=== PATIENT | female | born 1970 | race Two or more races ===

== ENCOUNTER 2023-08-29 08:58 | Inpatient (IN) | payer SELFPAY ==
[2023-08-29] VITALS (24 sets, daily range): BP systolic 99–134; BP diastolic 62–98; PULSE 54–81; RESP 16–19; TEMP 36.4–37.2; O2SAT 91–100; BMI 31.2; BMI 26.6
--- NOTE | 2023-08-29 09:03 | HMH.EDGENADL ---
Discharge Plan Disposition Patient Disposition: Admitted Discharge ED Provider: Javier Lua Adult HPI General Chief complaint: Abdominal Pain Stated complaint: Abd Pain Time Seen by Provider: 08/29/23 09:03 History of Present Illness HPI narrative: Patient presents with acute onset epigastric pain that started yesterday. It is severe and nonradiating. She states she has had similar symptoms before and was told that it was PUD. She has history of cholecystectomy and bilateral tubal ligation. She has had nausea vomiting and has not been able to pass flatus. Denies daily medication use however does not see a PCP. No fevers or chills. No chest pain. Related Data Home Medications Medication Instructions Recorded Confirmed bismuth subsalicylate 262 mg/15 mL 524 mg PO QID 08/29/23 08/29/23 oral suspension (Pepto-Bismol) Allergies Allergy/AdvReac Type Severity Reaction Status Date / Time No Known Allergies Allergy Verified 08/29/23 09:33 [facility] Disclaimer: The information contained in this section may have been updated after the patient was seen, as this information can be updated by other users. Surgical History (Updated 08/29/23 @ 09:34 by Savanah Brown RN) Hx of cholecystectomy Hx of tubal ligation Social History (Updated 08/29/23 @ 14:37 by Evelina Reed RN) Smoking Status: Never smoker alcohol intake: never current occupational status: unemployed Travel in the last 8 weeks: None ROS Obtained: Yes Systems reviewed as appropriate & no additional complaints except as documented As per HPI Physical Exam General General appearance: alert and in distress Head Head exam: atraumatic and normocephalic Eye Eye exam: Present normal appearance Neck Neck exam: Present normal inspection Chest Chest inspection: Present normal inspection and symmetric chest wall rise Respiratory Respiratory exam: Present normal lung sounds bilaterally; Absent respiratory distress Cardiovascular Cardiovascular exam: Present regular rate and normal rhythm Abdominal Exam Abdominal exam: Present soft and tenderness Abdominal tenderness: Present epigastrium Neurological Exam Neurological exam: Present alert and oriented X3 Psychiatric Psychiatric exam: Present normal affect and normal mood Skin Skin exam: Present warm and dry Medical Decision Making Medical Records Medical records reviewed: Yes I reviewed the patient's medical records. Carlos Inquiry Pt receiving controlled substance: No Vital Signs: 08/29/23 08:59 08/29/23 09:15 08/29/23 09:38 Temperature 98.6 F Temperature Source Oral Pulse Rate 65 62 Pulse Rate [Right] 81 Respiratory Rate 19 Blood Pressure 134/98 H 117/80 Blood Pressure [Right Arm] 119/79 Blood Pressure Mean [Right Arm] 92 Blood Pressure Source [Right Arm] Automatic Cuff 02 Sat by Pulse Oximetry 99 98 97 Oxygen Delivery Method Room Air Room Air Room Air 08/29/23 09:45 08/29/23 10:15 08/29/23 10:30 Temperature Temperature Source Pulse Rate 63 67 56 L Pulse Rate [Right] Respiratory Rate Blood Pressure 118/81 123/81 120/79 Blood Pressure [Right Arm] Blood Pressure Mean [Right Arm] Blood Pressure Source [Right Arm] 02 Sat by Pulse Oximetry 95 100 96 Oxygen Delivery Method Room Air Room Air Room Air 08/29/23 10:45 08/29/23 11:00 08/29/23 11:15 Temperature Temperature Source Pulse Rate 65 66 59 L Pulse Rate [Right] Respiratory Rate Blood Pressure 116/77 119/78 125/88 Blood Pressure [Right Arm] Blood Pressure Mean [Right Arm] Blood Pressure Source [Right Arm] 02 Sat by Pulse Oximetry 98 96 96 Oxygen Delivery Method Room Air Room Air 08/29/23 11:30 08/29/23 11:45 08/29/23 12:00 Temperature Temperature Source Pulse Rate 62 61 65 Pulse Rate [Right] Respiratory Rate Blood Pressure 109/74 L 109/74 L 113/74 Blood Pressure [Right Arm] Blood Pressure Mean [Right Arm] Blood Pressure Source [Right Arm] 02 Sat by Pulse Oximetry 99 97 98 Oxygen Delivery Method 08/29/23 12:15 08/29/23 12:30 08/29/23 12:45 Temperature Temperature Source Pulse Rate 64 68 69 Pulse Rate [Right] Respiratory Rate Blood Pressure 112/73 105/72 L 103/69 L Blood Pressure [Right Arm] Blood Pressure Mean [Right Arm] Blood Pressure Source [Right Arm] 02 Sat by Pulse Oximetry 96 98 93 L Oxygen Delivery Method 08/29/23 13:00 08/29/23 13:15 08/29/23 13:30 Temperature Temperature Source Pulse Rate 65 64 65 Pulse Rate [Right] Respiratory Rate Blood Pressure 121/80 110/77 121/84 Blood Pressure [Right Arm] Blood Pressure Mean [Right Arm] Blood Pressure Source [Right Arm] 02 Sat by Pulse Oximetry 100 99 98 Oxygen Delivery Method Room Air Room Air Room Air 08/29/23 13:45 08/29/23 14:09 Temperature 98.6 F Temperature Source Pulse Rate 74 81 Pulse Rate [Right] Respiratory Rate 16 Blood Pressure 126/89 122/84 Blood Pressure [Right Arm] Blood Pressure Mean [Right Arm] Blood Pressure Source [Right Arm] 02 Sat by Pulse Oximetry 96 Oxygen Delivery Method Room Air Lab Data Lab Results 08/29/23 09:38: WBC 7.5, RBC 5.07, Hgb 15.7, Hct 48.0 H, MCV 94.7, MCH 31.0, MCHC 32.7, RDW 13.7, Plt Count 320, MPV 7.4, Neut % (Auto) 78.1, Lymph % (Auto) 16.3, [place] % (Auto) 4.0, Eos % (Auto) 1.1, Baso % (Auto) 0.3, Neut # (Auto) 5.9, Lymph # (Auto) 1.2, [place] # (Auto) 0.3, Eos # (Auto) 0.1, Baso # (Auto) 0.0, PT 10.5, INR 0.97, Sodium 140, Potassium 3.9, Chloride 107, Carbon Dioxide 26, Anion Gap 10.9, BUN 11, Creatinine 0.70, Estimated Creat Clear 108, Estimated GFR 88, Est GFR ( Amer) 106, Glucose 112 H, Calcium 9.7, Total Bilirubin 0.8, AST 32, ALT 31, Alkaline Phosphatase 115, Total Protein 7.7, Albumin 4.5, Globulin 3.2, Albumin/Globulin Ratio 1.4, Lipase 134 08/29/23 11:55: Lactate 1.1 08/29/23 09:38 08/29/23 09:38 Orders (Tests/Meds): ED MEDICATIONS Generic Name Dose Route Start Last Admin Trade Name Freq PRN Reason Stop Dose Admin Diatrizoate Meglum/Diatrizoate Sod 120 ml 08/29/23 21:00 Diatrizoate Amelia 66% & Diatrizoate Na 10% 30ml Udc PO 08/29/23 21:01 ONCE ONE Enoxaparin Sodium 40 mg 08/29/23 14:30 08/29/23 16:00 Enoxaparin 40mg/0.4ml Syringe SQ 09/28/23 14:29 Not Given DAILY EAMON Sodium Chloride 1,000 mls @ 50 mls/hr 08/29/23 14:30 08/29/23 14:47 Sod Chlor 0.9% 1000ml Bag IV 09/28/23 14:29 50 mls/hr .Q20H EAMON Administration Morphine Sulfate 2 mg 08/29/23 14:19 Morphine 2mg/Ml Syringe IV 09/28/23 14:18 Q2HP PRN Severe Pain (7-10) Ondansetron HCl 4 mg 08/29/23 14:19 Ondansetron 4mg/2ml Vial IV 09/28/23 14:18 Q8HP PRN Nausea Sodium Chloride 8 ml 08/29/23 09:17 08/29/23 09:58 Sodium Chloride 0.9% 10ml Vial IV 09/28/23 09:16 8 ml NEEDED PRN Administration dilute pepcid Sodium Chloride 10 ml 08/29/23 14:19 Sodium Chloride 0.9% 10ml Flush Syringe IV 09/28/23 14:18 NEEDED PRN Maintain IV Site Discontinued Medications Generic Name Dose Route Start Last Admin Trade Name Freq PRN Reason Stop Dose Admin Belladonna Alkaloids 60 ml 08/29/23 09:17 08/29/23 09:58 Belladonna Alkaloids 60 Ml Ml PO 08/29/23 09:18 60 ml ONCE ONE Administration Famotidine 20 mg 08/29/23 09:17 08/29/23 09:58 Famotidine 20mg/2ml Vial IV 08/29/23 09:18 20 mg ONCE ONE Administration Hydromorphone HCl 0.5 mg 08/29/23 12:57 08/29/23 13:21 Hydromorphone 4 Mg/Ml Syringe IV 08/29/23 12:58 0.5 mg ONCE ONE Administration Iopamidol 75 ml 08/29/23 10:04 08/29/23 10:04 Iopamidol-370 (76%);100ml Bottle IV 08/29/23 10:05 75 ml ONCE ONE Administration Sodium Chloride 10 ml 08/29/23 10:04 08/29/23 10:04 Sodium Chloride 0.9% 10ml Syr (Rad Only) IV 08/29/23 10:05 10 ml ONCE ONE Administration ORDERS Category Date Time Status CT abdomen pelvis w con Stat Cat Scan 08/29/23 09:17 Completed Abdomen XR flat & upright [XR acute abdomen series] Exams 08/30/23 06:00 Ordered DAILY XR KUB Stat Exams 08/29/23 13:42 Completed CBC w/Auto Diff [Complete Blood Count Auto Diff] Stat Lab 08/29/23 09:38 Completed CMP [Comprehensive Metabolic Panel] Stat Lab 08/29/23 09:38 Completed Lactic Acid Stat Lab 08/29/23 11:55 Completed Lipase Stat Lab 08/29/23 09:38 Completed Medical Decision Narrative: Patient with history and exam per above presenting for evaluation of epigastric and left upper quadrant pain Diagnoses considered include Pancreatitis, gastritis, PUD, gastroparesis, pneumonia, bowel obstruction ED workup and treatment included: ED MEDICATIONS Generic Name Dose Route Start Last Admin Trade Name Freq PRN Reason Stop Dose Admin Diatrizoate Meglum/Diatrizoate Sod 120 ml 08/29/23 21:00 Diatrizoate Amelia 66% & Diatrizoate Na 10% 30ml Udc PO 08/29/23 21:01 ONCE ONE Enoxaparin Sodium 40 mg 08/29/23 14:30 08/29/23 16:00 Enoxaparin 40mg/0.4ml Syringe SQ 09/28/23 14:29 Not Given DAILY EAMON Sodium Chloride 1,000 mls @ 50 mls/hr 08/29/23 14:30 08/29/23 14:47 Sod Chlor 0.9% 1000ml Bag IV 09/28/23 14:29 50 mls/hr .Q20H EAMON Administration Morphine Sulfate 2 mg 08/29/23 14:19 Morphine 2mg/Ml Syringe IV 09/28/23 14:18 Q2HP PRN Severe Pain (7-10) Ondansetron HCl 4 mg 08/29/23 14:19 Ondansetron 4mg/2ml Vial IV 09/28/23 14:18 Q8HP PRN Nausea Sodium Chloride 8 ml 08/29/23 09:17 08/29/23 09:58 Sodium Chloride 0.9% 10ml Vial IV 09/28/23 09:16 8 ml NEEDED PRN Administration dilute pepcid Sodium Chloride 10 ml 08/29/23 14:19 Sodium Chloride 0.9% 10ml Flush Syringe IV 09/28/23 14:18 NEEDED PRN Maintain IV Site Discontinued Medications Generic Name Dose Route Start Last Admin Trade Name Freq PRN Reason Stop Dose Admin Belladonna Alkaloids 60 ml 08/29/23 09:17 08/29/23 09:58 Belladonna Alkaloids 60 Ml Ml PO 08/29/23 09:18 60 ml ONCE ONE Administration Famotidine 20 mg 08/29/23 09:17 08/29/23 09:58 Famotidine 20mg/2ml Vial IV 08/29/23 09:18 20 mg ONCE ONE Administration Hydromorphone HCl 0.5 mg 08/29/23 12:57 08/29/23 13:21 Hydromorphone 4 Mg/Ml Syringe IV 08/29/23 12:58 0.5 mg ONCE ONE Administration Iopamidol 75 ml 08/29/23 10:04 08/29/23 10:04 Iopamidol-370 (76%);100ml Bottle IV 08/29/23 10:05 75 ml ONCE ONE Administration Sodium Chloride 10 ml 08/29/23 10:04 08/29/23 10:04 Sodium Chloride 0.9% 10ml Syr (Rad Only) IV 08/29/23 10:05 10 ml ONCE ONE Administration ORDERS Category Date Time Status CT abdomen pelvis w con Stat Cat Scan 08/29/23 09:17 Completed Abdomen XR flat & upright [XR acute abdomen series] Exams 08/30/23 06:00 Ordered DAILY XR KUB Stat Exams 08/29/23 13:42 Completed CBC w/Auto Diff [Complete Blood Count Auto Diff] Stat Lab 08/29/23 09:38 Completed CMP [Comprehensive Metabolic Panel] Stat Lab 08/29/23 09:38 Completed Lactic Acid Stat Lab 08/29/23 11:55 Completed Lipase Stat Lab 08/29/23 09:38 Completed Labs were independently interpreted by me, significant for no acute findings, lactate within normal limits Imaging was independently visualized and interpreted by me, significant for small bowel obstruction. Please refer to radiology report for full details. I discussed case with general surgeon and hospitalist. Patient will be admitted to hospital medicine service for conservative management. Critical Care Critical Care Time Critical Care Time: No
--- NOTE | 2023-08-29 09:17 | CT_ITS ---
FINAL REPORT TECHNIQUE: Thin section axial images were obtained through the abdomen after intravenous contrast. Reconstruction images were obtained from the axial data. Exam was performed using dose reduction techniques. CLINICAL HISTORY: acute severe epigastric pain, hx pud FINDINGS: The lung bases are clear. There are several hypodense liver lesions, favor hepatic cysts. The gallbladder is absent. There is wall thickening of the distal esophagus, esophagitis is not excluded. The spleen, adrenal glands, and pancreas are unremarkable. There is no hydronephrosis or solid renal mass. There is trace free fluid along the margin of the liver. There are distal small bowel loops in the left upper quadrant measuring up to 3.6 cm. Transition point is difficult to determine, likely in the mid pelvis. The terminal ileum is decompressed. The appendix is normal. Fibroid uterus is identified. The ovaries are unremarkable. Small amount of free fluid is noted. No acute osseous abnormalities identified. IMPRESSION: Findings concerning for small bowel obstruction with transition point in the mid pelvis. Small amount of free fluid, likely reactive. Reviewed, Interpreted and Dictated by Kacie Renner MD Transcribed by Estephanie Laurent Authenticated and [facility]
[2023-08-29 09:42] LABS: Basophils % 0.3 % (0.1-2.0); Eosinophils # 0.1 K/mm3 (0.0-0.4); Eosinophils % 1.1 % (0.1-12.0); Hemoglobin 15.7 g/dL (12.2-16.2); Lymphocytes # 1.2 K/mm3 (0.7-4.5); Lymphocytes % 16.3 % (10-50); Mean Corpuscular HGB Conc 32.7 g/dL (31.8-35.4); Mean Corpuscular Volume 94.7 fl (81-99); Mean Platelet Volume 7.4 fl (7.4-10.4); Monocytes # 0.3 K/mm3 (0.1-1.0); Neutrophils # 5.9 K/mm3 (1.8-7.8); Neutrophils % 78.1 % (37.0-80.0); Platelet Count 320 K/mm3 (142-424); Red Blood Count 5.07 M/mm3 (4.20-5.40); Red Cell Distribution Width 13.7 % (11.5-17.5); White Blood Count 7.5 K/mm3 (4.8-10.8)
[2023-08-29 09:49] LABS: Alanine Aminotransferase 31 U/L (12-78); Albumin Level 4.5 g/dl (3.5-5.0); Albumin/Globulin Ratio 1.4 (1.1-1.8); Alkaline Phosphatase 115 U/L (38-126); Anion Gap 10.9 mEq/L (5-15); Aspartate Amino Transferase 32 U/L (14-36); Bilirubin,Total 0.8 mg/dl (0.2-1.3); Blood Urea Nitrogen 11 mg/dl (7-17); Calcium 9.7 mg/dl (8.4-10.2); Carbon Dioxide 26 mmol/L (22.0-30.0); Chloride 107 mmol/L (98-107); Creatinine Clearance Estimated 108 mL/min (50-200); Estimated Glomerular Filt Rate 88 ml/min (>60); GFR (African American) 106 ML/MIN (>60); Globulin 3.2 g/dL (1.3-3.2); Glucose 112 mg/dl (74-100); Lipase 134 U/L (23-300); Potassium 3.9 mmoL/L (3.5-5.1); Sodium 140 mmol/L (136-145); Total Protein,Serum 7.7 g/dl (6.3-8.2)
[2023-08-29] MEDS: FAMOTIDINE 20MG/2ML VIAL 20 MG IV (09:58)
[2023-08-29] MEDS: SODIUM CHLORIDE 0.9% 10ML VIAL 8 ML IV (09:58)
[2023-08-29] MEDS: BELLADONNA ALKALOIDS 60 ML ML PO (09:58)
--- NOTE | 2023-08-29 09:58 | PC.NURSE ---
pt to ct scan via wheelchair
[2023-08-29] MEDS: SODIUM CHLORIDE 0.9% 10ML SYR (RAD ONLY) 10 ML IV (10:04)
[2023-08-29] MEDS: IOPAMIDOL-370 (76%);100ML BOTTLE 75 ML IV (10:04)
--- NOTE | 2023-08-29 10:05 | PC.NURSE ---
Pt back to room from ct scan
--- NOTE | 2023-08-29 10:05 | PC.NURSE ---
PT ARRIVED BACK TO ROOM FROM CT
--- NOTE | 2023-08-29 10:34 | PC.NURSE ---
ROUNDED ON PT STATED NO NEED WAS SHOWN WERE RESTROOM AT. CALL LIGHT AT BS FOR PT
--- NOTE | 2023-08-29 11:12 | PC.NURSE ---
Dr. Lua at bedside discussing ct findings
[2023-08-29 12:14] LABS: Lactic Acid 1.1 mmol/L (0.7-2.1)
--- NOTE | 2023-08-29 12:40 | PC.NURSE ---
Notified General-Surgery, Dr. Chou, for consult
--- NOTE | 2023-08-29 13:06 | PC.NURSE ---
CALLED [facility] ([facility])FOR CONSULT FOR GENERAL SURGERY PER
--- NOTE | 2023-08-29 13:13 | PC.NURSE ---
[facility] aware of admission for [facility],
--- NOTE | 2023-08-29 13:36 | PC.NURSE ---
Gave report to Mati COHN on Med/Surg
--- NOTE | 2023-08-29 13:42 | XR_ITS ---
FINAL REPORT CLINICAL HISTORY: NG tube placement FINDINGS: A single supine view of the abdomen was obtained. There is no prior for comparison. NG tube is present in the stomach. There are dilated small bowel loops in the upper abdomen. There are no pathologic calcifications. Osseous structures are within normal limits. IMPRESSION: NG tube in the stomach. Dilated small bowel loops in the upper abdomen. Reviewed, Interpreted and Dictated by Kacie Renner MD Transcribed by Ira Lay Authenticated and [facility]
--- NOTE | 2023-08-29 14:09 | PC.NURSE ---
Pt going to Med/Surg at this time
--- NOTE | 2023-08-29 14:27 | P.CONS_ITS ---
History of Present Illness *Admission Date: 08/29/23 *Reason for visit:: Abdominal pain *History of present illness: This is a 52-year-old female seen in consultation after evaluation emergency department secondary to worsening mid/upper abdominal pain. She reports increasing pain beginning yesterday. No flatus/bowel movement since onset of pain. No fevers. Nausea with an episode of emesis reported. [facility] Disclaimer: The information contained in this section may have been updated after the patient was seen, as this information can be updated by other users. Surgical History (Updated 08/29/23 @ 09:34 by Savanah Brown RN) Hx of cholecystectomy Hx of tubal ligation Social History Smoking Status: Never smoker alcohol intake: never current occupational status: unemployed Travel in the last 8 weeks: None Meds Home Medications and Allergies Home Medications Medication Instructions Recorded Confirmed Type bismuth subsalicylate 262 mg/15 mL 524 mg PO QID 08/29/23 08/29/23 History oral suspension (Pepto-Bismol) New Prescriptions to Start Prescriptions: Allergies Allergy/AdvReac Type Severity Reaction Status Date / Time No Known Allergies Allergy Verified 08/29/23 09:33 Exam (Inpt) Vital signs and Labs for Last 24 Hours: Temp Pulse Resp BP Pulse Ox O2 Del Method 98.9 F 66 18 122/84 91 L Room Air 08/29/23 14:16 08/29/23 14:16 08/29/23 14:16 08/29/23 14:16 08/29/23 14:16 08/29/23 14:16 Laboratory Results - last 24 hr 08/29/23 09:38: WBC 7.5, RBC 5.07, Hgb 15.7, Hct 48.0 H, MCV 94.7, MCH 31.0, MCHC 32.7, RDW 13.7, Plt Count 320, MPV 7.4, Neut % (Auto) 78.1, Lymph % (Auto) 16.3, [place] % (Auto) 4.0, Eos % (Auto) 1.1, Baso % (Auto) 0.3, Neut # (Auto) 5.9, Lymph # (Auto) 1.2, [place] # (Auto) 0.3, Eos # (Auto) 0.1, Baso # (Auto) 0.0, Sodium 140, Potassium 3.9, Chloride 107, Carbon Dioxide 26, Anion Gap 10.9, BUN 11, Creatinine 0.70, Estimated Creat Clear 108, Estimated GFR 88, Est GFR ( Amer) 106, Glucose 112 H, Calcium 9.7, Total Bilirubin 0.8, AST 32, ALT 31, Alkaline Phosphatase 115, Total Protein 7.7, Albumin 4.5, Globulin 3.2, Albumin/Globulin Ratio 1.4, Lipase 134 08/29/23 11:55: Lactate 1.1 I & O for Labs for Last 24 Hours: Intake & Output 08/27/23 08/28/23 08/29/23 08/30/23 11:59 11:59 11:59 11:59 Weight 160 lb 170 lb 3 oz Constitutional: no acute distress Comment:: The patient does appear somewhat uncomfortable but does not appear to be in distress Respiratory: Absent respiratory distress Cardiac: Absent Tachycardia GI: Present soft, distention (Mild distention in mid/upper abdomen) and tenderness; Absent rebound Results Labs 08/29/23 09:38 08/29/23 09:38 Labs: Laboratory Results - last 24 hr 08/29/23 09:38: WBC 7.5, RBC 5.07, Hgb 15.7, Hct 48.0 H, MCV 94.7, MCH 31.0, MCHC 32.7, RDW 13.7, Plt Count 320, MPV 7.4, Neut % (Auto) 78.1, Lymph % (Auto) 16.3, [place] % (Auto) 4.0, Eos % (Auto) 1.1, Baso % (Auto) 0.3, Neut # (Auto) 5.9, Lymph # (Auto) 1.2, [place] # (Auto) 0.3, Eos # (Auto) 0.1, Baso # (Auto) 0.0, Sodium 140, Potassium 3.9, Chloride 107, Carbon Dioxide 26, Anion Gap 10.9, BUN 11, Creatinine 0.70, Estimated Creat Clear 108, Estimated GFR 88, Est GFR ( Amer) 106, Glucose 112 H, Calcium 9.7, Total Bilirubin 0.8, AST 32, ALT 31, Alkaline Phosphatase 115, Total Protein 7.7, Albumin 4.5, Globulin 3.2, Albumin/Globulin Ratio 1.4, Lipase 134 08/29/23 11:55: Lactate 1.[address] scan - abdomen: report reviewed and image reviewed CT scan - pelvis: report reviewed and image reviewed Assessment and Plan *Assessment and plan (1) Small bowel obstruction: Status: Acute Category: Medical Code(s): K56.609 - Unspecified intestinal obstruction, unspecified as to partial versus complete obstruction Plan: Nasogastric decompression Serial abdominal exams Modified Gastrografin challenge with repeat flat/upright films in AM
[2023-08-29] MEDS: 0.9 % SODIUM CHLORIDE 1000ML 1,000 ML 50 ML IV (14:47)
[2023-08-29 15:07] LABS: INR 0.97 (0.9-1.1); Prothrombin Time 10.5 seconds (10.1-12.5)
--- NOTE | 2023-08-29 17:36 | PC.NURSE ---
Tried multiple times to get supply assistant to work and it states no connection.
--- NOTE | 2023-08-29 18:10 | P.HP_ITS ---
History of Present Illness *Admission Date: 08/29/23 *History of present illness: Patient is a 52-year-old female who presented to hospital due to abdominal pain. According to patient she had nausea vomiting yesterday, she also mentions it was red-colored but she thinks it was Pepto-Bismol that she used. She has never been diagnosed with small bowel obstruction before. She has past medical history of tubal ligation, cholecystectomy. Patient mentions her pain is 8/10 intensity, nonradiating, localized to the abdomen. Patient at time of my evaluation denied fevers chills. [facility] Disclaimer: The information contained in this section may have been updated after the patient was seen, as this information can be updated by other users. Surgical History (Updated 08/29/23 @ 09:34 by Savanah Brown RN) Hx of cholecystectomy Hx of tubal ligation Social History (Updated 08/29/23 @ 14:37 by Evelina Reed RN) Smoking Status: Never smoker alcohol intake: never current occupational status: unemployed Travel in the last 8 weeks: None Review of Systems Review of Systems Review of systems (narrative): as per [facility] Meds Home Medications and Allergies Home Medications Medication Instructions Recorded Confirmed Type bismuth subsalicylate 262 mg/15 mL 524 mg PO QID 08/29/23 08/29/23 History oral suspension (Pepto-Bismol) New Prescriptions to Start Prescriptions: Allergies Allergy/AdvReac Type Severity Reaction Status Date / Time No Known Allergies Allergy Verified 08/29/23 09:33 Exam Data for Last 24 hours Vital signs and Labs for Last 24 Hours: Temp Pulse Resp BP Pulse Ox O2 Del Method 98.9 F 66 18 122/84 98 Room Air 08/29/23 14:16 08/29/23 14:16 08/29/23 14:16 08/29/23 14:16 08/29/23 15:04 08/29/23 17:35 Laboratory Results - last 24 hr 08/29/23 09:38: WBC 7.5, RBC 5.07, Hgb 15.7, Hct 48.0 H, MCV 94.7, MCH 31.0, MCHC 32.7, RDW 13.7, Plt Count 320, MPV 7.4, Neut % (Auto) 78.1, Lymph % (Auto) 16.3, [place] % (Auto) 4.0, Eos % (Auto) 1.1, Baso % (Auto) 0.3, Neut # (Auto) 5.9, Lymph # (Auto) 1.2, [place] # (Auto) 0.3, Eos # (Auto) 0.1, Baso # (Auto) 0.0, PT 10.5, INR 0.97, Sodium 140, Potassium 3.9, Chloride 107, Carbon Dioxide 26, Anion Gap 10.9, BUN 11, Creatinine 0.70, Estimated Creat Clear 108, Estimated GFR 88, Est GFR ( Amer) 106, Glucose 112 H, Calcium 9.7, Total Bilirubin 0.8, AST 32, ALT 31, Alkaline Phosphatase 115, Total Protein 7.7, Albumin 4.5, Globulin 3.2, Albumin/Globulin Ratio 1.4, Lipase 134 08/29/23 11:55: Lactate 1.1 I & O for Last 24 hours: Intake & Output 08/26/23 08/27/23 08/28/23 08/29/23 23:59 23:59 23:59 23:59 Weight 77.196 kg Constitutional Constitutional: no acute distress *Routine HEENT Exam Head: Present normocephalic Eye: Present EOMI and PERRL ENT: Present mucous membranes moist *Routine Neck Exam Neck: Present supple; Absent lymphadenopathy *Routine Respiratory Exam Respiratory: Present CTA bilaterally *Routine Cardiovascular Exam Cardiovascular: Present RRR *Routine Abdominal Exam Abdominal: Present soft Comments: epigastric pain *Routine Rectal Exam Rectal:: deferred *Routine Genitalia Exam Genitalia:: deferred *Routine Extremities Exam Extremities: Absent cyanosis, clubbing or edema *Routine Skin Exam Skin: Present warm; Absent rash *Routine Neurological Exam Neurological: Present alert and oriented X3 Assessment and Plan *Assessment and plan (1) Small bowel obstruction: Status: Acute Category: Medical Code(s): K56.609 - Unspecified intestinal obstruction, unspecified as to partial versus complete obstruction Plan Patient is a 52-year-old female who presented to hospital due to abdominal pain. According to patient she had nausea vomiting yesterday, she also mentions it was red-colored but she thinks it was Pepto-Bismol that she used. She has never been diagnosed with small bowel obstruction before. She has past medical history of tubal ligation, cholecystectomy. Patient mentions her pain is 8/10 intensity, nonradiating, localized to the abdomen. Patient at time of my evaluation denied fevers chills. Assessment and plan Nausea vomiting abdominal pain likely secondary to small bowel obstruction N.p.o. NG tube decompression Monitor abdominal x-rays Gastrografin study in the morning Monitor and replace electrolytes IV fluids Pain control DVT prophylaxis-heparin
--- NOTE | 2023-08-29 18:32 | PC.NURSE ---
cardiology technician calista used on ipad to communicate with the patient... Explained what the plan is as far as her care at this moment and what to expect tomorrow. States she has no questions at this time.
[2023-08-29] MEDS: DIATRIZOATE MEG 66% & DIATRIZOATE NA 10% 30ML UDC 120 ML PO (23:17)
[2023-08-29] MEDS: ONDANSETRON 4MG/2ML VIAL 4 MG IV (23:25)
[2023-08-30] MEDS: ACETAMINOPHEN 325MG TAB 650 MG NG-TUBE (01:16)
--- NOTE | 2023-08-30 01:25 | PC.NURSE ---
patient states that she went to bathroom and had liquid bowel movement; not a great amount; states color was dark almost black; this was after she had taken the prep medication for the abdomen series scheduled for 6am.
[2023-08-30 04:00] VITALS: BP 112/66; PULSE 67; RESP 18; TEMP 36.6; O2SAT 95; BMI 26.4
--- NOTE | 2023-08-30 06:00 | XR_ITS ---
PROCEDURE INFORMATION: Exam: XR Complete Acute Abdomen Series Including Chest Exam date and time: 08/30/2023 5:42 AM Age: 52 years old Clinical indication: Abdominal pain; Additional info: Sbo TECHNIQUE: Imaging protocol: Radiologic exam. Complete acute abdomen series, including 2 or more views of the abdomen and a single view chest. COMPARISON: CR XR KUB 08/29/2023 1:42 PM FINDINGS: Tubes, catheters and devices: There is an enteric tube in place with the distal tip in the stomach. Lungs: Normal. No consolidation. Pleural spaces: Normal. No pleural effusions. No pneumothorax. Heart/Mediastinum: Normal. No cardiomegaly. Gastrointestinal tract: There is oral contrast within the small bowel in the pelvis. It is also present throughout the nondilated colon to the rectosigmoid. There are a few air-filled loops of small bowel in the epigastrium which have diminished in size. Intraperitoneal space: Normal. No free air. Organs: There is excreted IV contrast extending into the bladder. Bones/joints: No acute fracture. Soft tissues: Normal. IMPRESSION: 1. Interval decrease in the amount in size of air-filled loops of small bowel in the epigastrium. 2. Oral contrast is seen in the nondilated distal small bowel and throughout the nondilated colon. 3. Enteric tube in place.
--- NOTE | 2023-08-30 06:37 | PC.NURSE ---
Patient had minimal amount of suction contents last night; approximately 1 hr post Gastrografin medication patient reported having some diarrhea. Patient has remained NPO. VS; voices no concerns.
[2023-08-30 06:50] LABS: Eosinophils % 0.4 % (0.1-12.0); Mean Platelet Volume 7.2 fl (7.4-10.4)
[2023-08-30 06:52] LABS: Chloride 111 mmol/L (98-107); Potassium 3.7 mmoL/L (3.5-5.1); Sodium 143 mmol/L (136-145)
[2023-08-30 06:55] LABS: Anion Gap 8.7 mEq/L (5-15); Blood Urea Nitrogen 16 mg/dl (7-17); Calcium 8.9 mg/dl (8.4-10.2); Carbon Dioxide 27 mmol/L (22.0-30.0); Creatinine Clearance Estimated 99 mL/min (50-200); Estimated Glomerular Filt Rate 75 ml/min (>60); GFR (African American) 91 ML/MIN (>60); Glucose 97 mg/dl (74-100)
[2023-08-30 06:57] LABS: Basophils % 0.5 % (0.1-2.0); Hematocrit 43.1 % (37.0-47.0); Hemoglobin 13.8 g/dL (12.2-16.2); Lymphocytes % 26.2 % (10-50); Mean Corpuscular HGB Conc 32.1 g/dL (31.8-35.4); Mean Corpuscular Hemoglobin 30.8 pg (27.0-31.2); Mean Corpuscular Volume 96.2 fl (81-99); Monocytes # 0.4 K/mm3 (0.1-1.0); Neutrophils # 5.2 K/mm3 (1.8-7.8); Platelet Count 275 K/mm3 (142-424); Red Blood Count 4.49 M/mm3 (4.20-5.40); Red Cell Distribution Width 13.8 % (11.5-17.5); White Blood Count 7.6 K/mm3 (4.8-10.8)
[2023-08-30 08:00] VITALS: BP 105/68; PULSE 61; RESP 20; TEMP 36.3; O2SAT 96
--- NOTE | 2023-08-30 08:30 | PC.NURSE ---
Dr. Chou at bedside. Per Dr Chou, okay to give patient small amounts of clear, noncarbonated liquid this am. If patient tolerates clear noncarbonated diet order may be placed for lunch. Can remove NG when ready. Discussed with patient and she prefers to wait until lunchtime to remove NG.
--- NOTE | 2023-08-30 08:38 | P.PN_ITS ---
Subjective Patient reports: no new complaints, feels better and bowel movement Exam Data for Last 24 hours Vital signs and Labs for Last 24 Hours: Temp Pulse Resp BP Pulse Ox O2 Del Method 97.9 F 67 18 112/66 95 Room Air 08/30/23 04:00 08/30/23 04:00 08/30/23 04:00 08/30/23 04:00 08/30/23 04:00 08/30/23 06:31 Laboratory Results - last 24 hr 08/29/23 09:38: WBC 7.5, RBC 5.07, Hgb 15.7, Hct 48.0 H, MCV 94.7, MCH 31.0, MCHC 32.7, RDW 13.7, Plt Count 320, MPV 7.4, Neut % (Auto) 78.1, Lymph % (Auto) 16.3, [place] % (Auto) 4.0, Eos % (Auto) 1.1, Baso % (Auto) 0.3, Neut # (Auto) 5.9, Lymph # (Auto) 1.2, [place] # (Auto) 0.3, Eos # (Auto) 0.1, Baso # (Auto) 0.0, PT 10.5, INR 0.97, Sodium 140, Potassium 3.9, Chloride 107, Carbon Dioxide 26, Anion Gap 10.9, BUN 11, Creatinine 0.70, Estimated Creat Clear 108, Estimated GFR 88, Est GFR ( Amer) 106, Glucose 112 H, Calcium 9.7, Total Bilirubin 0.8, AST 32, ALT 31, Alkaline Phosphatase 115, Total Protein 7.7, Albumin 4.5, Globulin 3.2, Albumin/Globulin Ratio 1.4, Lipase 134 08/29/23 11:55: Lactate 1.1 08/30/23 05:39: WBC 7.6, RBC 4.49, Hgb 13.8 D, Hct 43.1, MCV 96.2, MCH 30.8, MCHC 32.1, RDW 13.8, Plt Count 275, MPV 7.2 L, Neut % (Auto) 68.0, Lymph % (Auto) 26.2, [place] % (Auto) 5.0, Eos % (Auto) 0.4, Baso % (Auto) 0.5, Neut # (Auto) 5.2, Lymph # (Auto) 2.0, [place] # (Auto) 0.4, Eos # (Auto) 0.0, Baso # (Auto) 0.0, Sodium 143, Potassium 3.7, Chloride 111 H, Carbon Dioxide 27, Anion Gap 8.7, BUN 16 D, Creatinine 0.80, Estimated Creat Clear 99, Estimated GFR 75, Est GFR ( Amer) 91, Glucose 97, Calcium 8.9 I & O for Last 24 hours: Intake & Output 08/27/23 08/28/23 08/29/23 08/30/23 11:59 11:59 11:59 11:59 Intake Total 120 / 120 Balance 120 / 120 Weight 160 lb 168 lb Radiology Reports for the Last 24 Hours: Flat/upright films from this morning show improved bowel gas pattern with contrast in colon Constitutional Constitutional: no acute distress *Routine Respiratory Exam Respiratory: Absent respiratory distress *Routine Cardiovascular Exam Cardiovascular: Absent tachycardia *Routine Abdominal Exam Abdominal: Present soft; Absent tenderness Progress Note: A&P Assessment and plan (1) Small bowel obstruction: Status: Acute Assessment and plan: Significant radiographic improvement in significant subjective improvement. Bowel movements reported. Remove nasogastric tube Limited clear liquids with likely slow advancement
[2023-08-30] MEDS: ENOXAPARIN 40MG/0.4ML SYRINGE 40 MG SQ (08:45)
--- NOTE | 2023-08-30 11:10 | PC.NURSE ---
NG removed. Patient tolerated procedure well
--- NOTE | 2023-08-30 11:21 | PC.NURSE ---
Patient has been tolerating clear liquids sparingly. Clear liquid diet tray ordered for lunch per Dr. Chou's instructions
[2023-08-30 12:00] VITALS: BP 99/60; PULSE 66; RESP 18; TEMP 36.7; O2SAT 96
--- NOTE | 2023-08-30 14:23 | PC.NURSE ---
Patient tolerating clear liquid diet. Okay to advance to full liquids per Dr. Chou
--- NOTE | 2023-08-30 14:27 | P.PN_ITS ---
Subjective *Date: 08/30/23 *Time: 14:27 Interval history: patient was seen and evaluated at the bedside. No reported acute events overnight, denies chest pain, shortness of breath, nausea, vomiting, abdominal pain. Exam Data for Last 24 hours Vital signs and Labs for Last 24 Hours: Temp Pulse Resp BP Pulse Ox O2 Del Method 98.0 F 66 18 99/60 L 96 Room Air 08/30/23 12:00 08/30/23 12:00 08/30/23 12:08/30/23 12:08/30/23 12:00 08/30/23 12:52 Laboratory Results - last 24 hr 08/29/23 09:38: PT 10.5, INR 0.97 08/30/23 05:39: WBC 7.6, RBC 4.49, Hgb 13.8 D, Hct 43.1, MCV 96.2, MCH 30.8, MCHC 32.1, RDW 13.8, Plt Count 275, MPV 7.2 L, Neut % (Auto) 68.0, Lymph % (Auto) 26.2, [place] % (Auto) 5.0, Eos % (Auto) 0.4, Baso % (Auto) 0.5, Neut # (Auto) 5.2, Lymph # (Auto) 2.0, [place] # (Auto) 0.4, Eos # (Auto) 0.0, Baso # (Auto) 0.0, Sodium 143, Potassium 3.7, Chloride 111 H, Carbon Dioxide 27, Anion Gap 8.7, BUN 16 D, Creatinine 0.80, Estimated Creat Clear 99, Estimated GFR 75, Est GFR ( Amer) 91, Glucose 97, Calcium 8.9 I & O for Last 24 hours: Intake & Output 08/27/23 08/28/23 08/29/23 08/30/23 23:59 23:59 23:59 23:59 Intake Total 840 / 840 Output Total 0 / 0 Balance 840 / 840 Weight 77.196 kg 76.204 kg Constitutional Constitutional: no acute distress *Routine HEENT Exam Head: Present normocephalic Eye: Present EOMI and PERRL ENT: Present mucous membranes moist *Routine Neck Exam Neck: Present supple; Absent lymphadenopathy *Routine Respiratory Exam Respiratory: Present CTA bilaterally *Routine Cardiovascular Exam Cardiovascular: Present RRR *Routine Abdominal Exam Abdominal: Present soft and normoactive bowel sounds; Absent tenderness *Routine Extremities Exam Extremities: Absent cyanosis, clubbing or edema *Routine Skin Exam Skin: Present warm; Absent rash *Routine Neurological Exam Neurological: Present alert and oriented X3 Assessment and Plan *Assessment and plan (1) Small bowel obstruction: Status: Acute Category: Medical Code(s): K56.609 - Unspecified intestinal obstruction, unspecified as to partial versus complete obstruction Plan Patient is a 52-year-old female who presented to hospital due to abdominal pain. According to patient she had nausea vomiting yesterday, she also mentions it was red-colored but she thinks it was Pepto-Bismol that she used. She has never been diagnosed with small bowel obstruction before. She has past medical history of tubal ligation, cholecystectomy. Patient mentions her pain is 8/10 intensity, nonradiating, localized to the abdomen. Patient at time of my evaluation denied fevers chills. Assessment and plan Nausea vomiting abdominal pain likely secondary to small bowel obstruction advance diet as tolerated NG tube is clamped Monitor abdominal x-rays - showed improvement Gastrografin study in the morning - contrast is going into the colon Monitor and replace electrolytes Pain control DVT prophylaxis-heparin Advance diet as tolerated, DC when ok with GS
[2023-08-30 15:49] VITALS: BP 95/61; PULSE 69; RESP 20; TEMP 36.8; O2SAT 96
--- NOTE | 2023-08-30 17:17 | PC.NURSE ---
Patient alert and oriented. VSS. Up ad carmen. NG discontinued. Tolerating clear liquid diet which has been advanced to full liquid diet for dinner. Denies pain. Multiple loose BM's. Abdomen soft and nontender with active bowel sounds. Possible discharge home tomorrow depending on diet advancement tolerance
[2023-08-30 20:00] VITALS: BP 96/57; PULSE 67; RESP 18; TEMP 36.8; O2SAT 96
[2023-08-31] VITALS: BP 99/54; PULSE 55; RESP 18; TEMP 36.5; O2SAT 98
[2023-08-31 04:00] VITALS: BP 92/50; PULSE 62; RESP 18; TEMP 36.9; O2SAT 98; BMI 27.1
[2023-08-31 07:19] LABS: Basophils % 0.3 % (0.1-2.0); Eosinophils # 0.1 K/mm3 (0.0-0.4); Eosinophils % 1.9 % (0.1-12.0); Hematocrit 42.4 % (37.0-47.0); Hemoglobin 13.7 g/dL (12.2-16.2); Lymphocytes # 2.2 K/mm3 (0.7-4.5); Lymphocytes % 41.5 % (10-50); Mean Corpuscular HGB Conc 32.4 g/dL (31.8-35.4); Mean Corpuscular Hemoglobin 31.3 pg (27.0-31.2); Mean Corpuscular Volume 96.6 fl (81-99); Mean Platelet Volume 6.6 fl (7.4-10.4); Monocytes # 0.4 K/mm3 (0.1-1.0); Monocytes % 6.8 % (1.7-9.3); Neutrophils # 2.6 K/mm3 (1.8-7.8); Neutrophils % 49.5 % (37.0-80.0); Platelet Count 265 K/mm3 (142-424); Red Blood Count 4.39 M/mm3 (4.20-5.40); Red Cell Distribution Width 13.7 % (11.5-17.5); White Blood Count 5.2 K/mm3 (4.8-10.8)
[2023-08-31 07:31] LABS: Chloride 106 mmol/L (98-107); Potassium 3.8 mmoL/L (3.5-5.1); Sodium 137 mmol/L (136-145)
[2023-08-31 07:34] LABS: Anion Gap 5.8 mEq/L (5-15); Blood Urea Nitrogen 13 mg/dl (7-17); Calcium 8.7 mg/dl (8.4-10.2); Carbon Dioxide 29 mmol/L (22.0-30.0); Creatinine Clearance Estimated 102 mL/min (50-200); Estimated Glomerular Filt Rate 75 ml/min (>60); GFR (African American) 91 ML/MIN (>60); Glucose 92 mg/dl (74-100)
[2023-08-31 08:00] VITALS: BP 111/70; PULSE 68; RESP 24; TEMP 36.6; O2SAT 99
--- NOTE | 2023-08-31 08:24 | EXP.SURG.PN ---
Subjective Patient reports: no new complaints, feels better and bowel movement Narrative: Tolerating advancement of diet Exam Data for Last 24 hours Vital signs and Labs for Last 24 Hours: Temp Pulse Resp BP Pulse Ox O2 Del Method 98.4 F 62 18 92/50 L 98 Room Air 08/31/23 04:00 08/31/23 04:00 08/31/23 04:00 08/31/23 04:00 08/31/23 04:00 08/31/23 07:44 Laboratory Results - last 24 hr 08/31/23 06:51: WBC 5.2 D, RBC 4.39, Hgb 13.7, Hct 42.4, MCV 96.6, MCH 31.3 H, MCHC 32.4, RDW 13.7, Plt Count 265, MPV 6.6 L, Neut % (Auto) 49.5, Lymph % (Auto) 41.5, [place] % (Auto) 6.8, Eos % (Auto) 1.9, Baso % (Auto) 0.3, Neut # (Auto) 2.6, Lymph # (Auto) 2.2, [place] # (Auto) 0.4, Eos # (Auto) 0.1, Baso # (Auto) 0.0, Sodium 137, Potassium 3.8, Chloride 106, Carbon Dioxide 29, Anion Gap 5.8, BUN 13, Creatinine 0.80, Estimated Creat Clear 102, Estimated GFR 75, Est GFR ( Amer) 91, Glucose 92, Calcium 8.7 I & O for Last 24 hours: Intake & Output 08/28/23 08/29/23 08/30/23 08/31/23 11:59 11:59 11:59 11:59 Intake Total 120 / 120 2310 / 2310 Output Total 0 / 0 0 / 0 Balance 120 / 120 2310 / 2310 Weight 160 lb 168 lb 172 lb 9.6 oz Constitutional Constitutional: no acute distress *Routine Respiratory Exam Respiratory: Absent respiratory distress *Routine Cardiovascular Exam Cardiovascular: Absent tachycardia *Routine Abdominal Exam Abdominal: Present soft; Absent tenderness Progress Note: A&P Assessment and plan (1) Small bowel obstruction: Status: Acute Assessment and plan: No clinical or radiographic evidence of obstruction at this time. Okay from surgical standpoint for discharge home with outpatient follow-up.
--- NOTE | 2023-08-31 09:56 | P.DS_ITS ---
General Admission date:: 08/29/23 Discharge date: 08/31/23 HPI HPI HPI: Patient is a 52-year-old female who presented to hospital due to abdominal pain. According to patient she had nausea vomiting yesterday, she also mentions it was red-colored but she thinks it was Pepto-Bismol that she used. She has never been diagnosed with small bowel obstruction before. She has past medical history of tubal ligation, cholecystectomy. Patient mentions her pain is 8/10 intensity, nonradiating, localized to the abdomen. Patient at time of my evaluation denied fevers chills. Hospital Course Hospital Course Hospital Course: Patient was seen and evaluated at the bedside on the day of discharge. Patient wishes to be discharged. All patient questions were answered and patient was given time to ask questions. Patient was discharged in stable condition. Patient understands that she can return to ER in case of any sudden changes in health. Total time spent on DC - 38 mins Patient is a 52-year-old female who presented to hospital due to abdominal pain. According to patient she had nausea vomiting yesterday, she also mentions it was red-colored but she thinks it was Pepto-Bismol that she used. She has never been diagnosed with small bowel obstruction before. She has past medical history of tubal ligation, cholecystectomy. Patient mentions her pain is 8/10 intensity, nonradiating, localized to the abdomen. Patient at time of my evaluation denied fevers chills. Assessment and plan Nausea vomiting abdominal pain likely secondary to small bowel obstruction - resolved, tolerating diet, stable for discharge DVT prophylaxis-heparin Advance diet as tolerated Exam Data for Last 24 hours Vital signs and Labs for Last 24 Hours: Temp Pulse Resp BP Pulse Ox O2 Del Method 97.9 F 68 24 111/70 99 Room Air 08/31/23 08:00 08/31/23 08:00 08/31/23 08:00 08/31/23 08:00 08/31/23 08:00 08/31/23 09:00 Laboratory Results - last 24 hr 08/31/23 06:51: WBC 5.2 D, RBC 4.39, Hgb 13.7, Hct 42.4, MCV 96.6, MCH 31.3 H, MCHC 32.4, RDW 13.7, Plt Count 265, MPV 6.6 L, Neut % (Auto) 49.5, Lymph % (Auto) 41.5, [place] % (Auto) 6.8, Eos % (Auto) 1.9, Baso % (Auto) 0.3, Neut # (Auto) 2.6, Lymph # (Auto) 2.2, [place] # (Auto) 0.4, Eos # (Auto) 0.1, Baso # (Auto) 0.0, Sodium 137, Potassium 3.8, Chloride 106, Carbon Dioxide 29, Anion Gap 5.8, BUN 13, Creatinine 0.80, Estimated Creat Clear 102, Estimated GFR 75, Est GFR ( Amer) 91, Glucose 92, Calcium 8.7 I & O for Last 24 hours: Intake & Output 08/28/23 08/29/23 08/30/23 08/31/23 23:59 23:59 23:59 23:59 Intake Total 1350 / 1350 1080 / 1080 Output Total 0 / 0 0 / 0 Balance 1350 / 1350 1080 / 1080 Weight 77.196 kg 76.204 kg 78.29 kg Constitutional Constitutional: no acute distress *Routine HEENT Exam Head: Present normocephalic Eye: Present EOMI and PERRL ENT: Present mucous membranes moist *Routine Neck Exam Neck: Present supple; Absent lymphadenopathy *Routine Respiratory Exam Respiratory: Present CTA bilaterally *Routine Cardiovascular Exam Cardiovascular: Present RRR *Routine Abdominal Exam Abdominal: Present soft and normoactive bowel sounds; Absent tenderness *Routine Extremities Exam Extremities: Absent cyanosis, clubbing or edema *Routine Skin Exam Skin: Present warm; Absent rash *Routine Neurological Exam Neurological: Present alert and oriented X3 Results Data Completed and Pending Labs on day of discharge: Labs from last 24 hours 08/31/23 06:51 WBC 5.2 D RBC 4.39 Hgb 13.7 Hct 42.4 MCV 96.6 MCH 31.3 H MCHC 32.4 RDW 13.7 Plt Count 265 MPV 6.6 L Neut % (Auto) 49.5 Lymph % (Auto) 41.5 [place] % (Auto) 6.8 Eos % (Auto) 1.9 Baso % (Auto) 0.3 Neut # (Auto) 2.6 Lymph # (Auto) 2.2 [place] # (Auto) 0.4 Eos # (Auto) 0.1 Baso # (Auto) 0.0 Sodium 137 Potassium 3.8 Chloride 106 Carbon Dioxide 29 Anion Gap 5.8 BUN 13 Creatinine 0.80 Estimated Creat Clear 102 Estimated GFR 75 Est GFR ( Amer) 91 Glucose 92 Calcium 8.7 DS: Diagnosis Discharge Diagnosis (1) Small bowel obstruction: Status: Acute Code(s): K56.609 - Unspecified intestinal obstruction, unspecified as to partial versus complete obstruction Meds Home Medications and Allergies Home Medications Medication Instructions Recorded Confirmed Type bismuth subsalicylate 262 mg/15 mL 524 mg PO QID 08/29/23 08/29/23 History oral suspension (Pepto-Bismol) New Prescriptions to Start Prescriptions: Allergies Allergy/AdvReac Type Severity Reaction Status Date / Time No Known Allergies Allergy Verified 08/29/23 09:33 Discharge Plan Disposition Patient Disposition: Home, Self-Care Condition: Good Discharge Order Discharge Orders: Discharge Order (Routine); Ordered 08/31/23 Ordered By: Ema Moore Follow up Plan Follow up with: Juan Chou MD [Staff Physician] - 09/07/23 10:00 am Prescriptions/Medication Reconciliation: Continued bismuth subsalicylate [Pepto-Bismol] 262 mg/15 mL Suspension 524 mg PO QID Problem Reconciliation Problems Reviewed?: Yes Patient Discharge Instructions ACTIVITY: Ambulate as tolerated DIET: continue same diet Patient Instructions: DI for Small Bowel Obstruction Providers Primary Care Provider: Wanda Garcia Admit Provider: Ema Moore Attending Provider: Ema Moore
--- NOTE | 2023-09-01 11:58 | CARE MANAGER ---
Contacted patient related to hospital discharge. She states she is doing better. She is eating and she is doing well. She is aware of follow up appointment. SUKI Quintanilla
== END 2023-08-31 10:33 | disposition home or self-care (01) | DRG 390 ==
LOC: ER 09:58 → 2ND 14:24
PROVIDERS: Admitting Provider Internal Medicine; Emergency Provider Emergency Medicine; PCP Student in an Organized Health Care Education/Training Program; Visit Provider Internal Medicine
DX: K56.609 Unspecified intestinal obstruction, unspecified as to partial versus complete obstruction (principal)
CPT/HCPCS: 36415; 74018; 74021; 74177; 80048; 80053; 83605; 83690; 85025; 85610; 99285; J2405; Q9967

== ENCOUNTER 2023-11-28 07:08 | Day surgery (SDC) | payer BC, SELFPAY ==
[2023-11-24 14:41] VITALS: BMI 27.3
[2023-11-28] VITALS (7 sets, daily range): BP systolic 90–119; BP diastolic 48–78; PULSE 53–61; RESP 16–18; TEMP 36.3–36.4; O2SAT 97–100
--- NOTE | 2023-11-28 08:04 | HMH.SCOPE ---
Procedure: Date: 11/28/23 Patient Date of :: 1970 Procedure Performed:: Esophagogastroduodenoscopy with biopsy Colonoscopy Indications:: Epigastric pain Screening Performing Provider:: Juan Chou MD Referring Provider:: . Sedation:: Monitored anesthesia care Procedure:: After informed consent was obtained the patient was taken to the endoscopy suite. Sedation ensued after the patient was transferred to the left lateral decubitus position. Pulse, blood pressure, and oxygen saturation were monitored throughout the procedure. The endoscope was advanced beyond the duodenal bulb. Retroflexion within the gastric lumen was accomplished. The gastroscope was carefully removed. Digital rectal exam revealed no significant abnormality. The colonoscope was placed in position. The entire colon was evaluated. The colonoscope was carefully removed and the patient was transferred to recovery in stable condition. Please see findings and specimens below for detail. Findings:: Gastroesophageal junction at 38 cm Small sliding hiatal hernia Mild gastritis Bowel preparation fair Hemorrhoidal tag/cushions (mild) Significant lack of relaxation/spasticity Specimens:: Antral biopsy Recommendations:: Follow-up pathology Repeat colonoscopy in 3-5 years secondary to lack of relaxation/spasticity. Complications:: No immediate Estimated blood obtained (mL): 1 Colonoscopy Component Colonoscopy Component Was a colonoscopy performed during today's procedure?: Yes Recommended follow up colonoscopy of at least 10 years?: No If no, follow up colonoscopy recommended in ___ years?: (See above) Reason for not recommending >/= 10 yr follow-up interval?: (See above)
--- NOTE | 2023-11-28 08:30 | SUR.OPER ---
LANGUAGE INTERPRETATION LINE USED FOR PRE OP INTERVIEW.
--- NOTE | 2023-11-28 08:55 | EXP.ANES.CKL ---
[facility] Disclaimer: The information contained in this section may have been updated after the patient was seen, as this information can be updated by other users. Surgical History Hx of tubal ligation Hx of cholecystectomy Family History Other No significant family history Social History Smoking Status: Never smoker alcohol intake: never substance use type: denies use current occupational status: employed and unemployed Travel in the last 8 weeks: None [facility] Anesthesia Checklist Patient Identification Patient Identification: Verbal (Name & ) Structural Data Admitted From: Home Planned Operative Procedure/s: egd,colonoscopy Airway Assessment Mallampati Score:: Class II C-Spine Mobility Assessed: Yes TMJ Mobility Assessed: Yes Dentition: Good Dentition Neurological Assessment Level of Consciousness: Awake, Alert and Appropriate Anesthesia Plan Anesthesia Risk discussed: Yes Anesthesia Plan: Verified ASA Class: II Anesthesia Type: MAC
--- NOTE | 2023-11-28 09:13 | EXP.ANES.I ---
[facility] Anesthesia Record Part I Anesthesia Record I Intake, IV Amount: 300 Hydration: Adequate Estimated blood loss (mL): 1 Urine output (mL): 0 Blood Products used (#): none Blood Pressure: 90/57 SaO2: 97 Pulse Rate: 61 Airway Patency: Patent Respiratory Rate: 16 Temperature: 97.6 F Patient is:: Awake (Talking) and Stable Stable to PACU at:: 09:15
== END 2023-11-28 09:45 | disposition home or self-care (01) ==
PROVIDERS: Visit Provider Surgery
PROC: 0DJ08ZZ Inspection of Upper Intestinal Tract, Via Natural or Artificial Opening Endoscopic (ICD-10-PCS; CPT 43235; principal; 2023-11-28 08:30)
DX: R10.13 Epigastric pain (principal); K44.9 Diaphragmatic hernia without obstruction or gangrene; K29.50 Unspecified chronic gastritis without bleeding; Z12.11 Encounter for screening for malignant neoplasm of colon; K64.4 Residual hemorrhoidal skin tags
CPT/HCPCS: 43239; 45378